=== PATIENT | female | born 1980 | race American Indian/Alaskan Native ===

== ENCOUNTER 2018-03-09 11:23 | Day surgery (SDC) | payer OTHER ==
[2018-03-04 09:55] VITALS: BMI 38.4
[2018-03-09] MEDS ORDERED: Lactated Ringer's 1,000 ML IV ONE (13:15)
[2018-03-09] MEDS ORDERED: Iohexol 240 200 ML ONE (14:40)
[2018-03-09] MEDS ORDERED: Propofol 10 mg/ml Inj (20 ML) ONE (14:42)
[2018-03-09] MEDS ORDERED: Midazolam 2 MG/2 ML VIAL ONE (14:42)
[2018-03-09] MEDS: Ciprofloxacin 400mg/200ml D5W 400 MG/200 ML BAG IVPB ONE ×2 (14:44→14:50)
[2018-03-09] MEDS ORDERED: HYDROmorphone 0.5 mg/0.5 ml ISec IVP PRN (15:29)
[2018-03-09 16:48] VITALS: BP 121/80; PULSE 66; RESP 18; TEMP 97.8; O2SAT 97
--- NOTE | 2018-03-09 17:45 | RAD ---
PROCEDURE: Intraoperative Fluoroscopy. HISTORY: NEUROGENIC BLADDER UTI FINDINGS: Fluoroscopic assistance was provided for cystogram. Please refer to the operative report from FLAVIO Kumari DR, MD. Total fluoroscopic time (continuous mode) utilized during the procedure 2.2 (seconds). Dosimetry: 2.44 mGy per meter squared.
--- NOTE | 2018-03-10 10:05 | RAD ---
HISTORY: NEUROGENIC BLADDER ,UTI COMPARISON: No prior. FINDINGS: BOWEL: Prominent matter retained colonic stool. No obstruction. No free air. BONES: Normal. OTHER FINDINGS: None. IMPRESSION: Prominent amount of retained colonic stool.
--- NOTE | 2018-03-31 18:42 | OP ---
PROCEDURE DATE: 03/09/2018 UROLOGY OPERATIVE NOTE PREOPERATIVE DIAGNOSES: Voiding dysfunction, incontinence, retention, neurogenic bladder. POSTOPERATIVE DIAGNOSES: Voiding dysfunction, incontinence, retention, neurogenic bladder. PROCEDURE: Cystogram and insertion of Harris catheter. COMPLICATIONS: There were no complications. INDICATIONS: See history and physical for further details. A very pleasant lady. "I am here really to insert a cystostomy tube." For various reasons, including body habitus, the patient with destroyed drainage permanently. I am not to use a Harris catheter which she does, insert a Harris catheter, she is having some difficulty with this. We discussed various options with the patient and after discussing various options, she is now here for the above procedure. HOWEVER, THERE IS A NOTED ALLERGY TO LATEX. , so we decided after discussing various options to do everything latex-free and not insert a cystostomy tube at this time. There is no latex-free cystostomy tube available at this clinic. PROCEDURES DONE: Cystogram and insertion of Harris catheter. The films were submitted to the radiologist. There are no complications. The catheter inserts well. There is no pelvic or rectal abnormalities. DESCRIPTION OF PROCEDURE: After obtaining informed consent, the patient was placed on the table. Routine monitors were placed. Time-out was called to confirm the patient positioning. Sedation was given. We have discussed various options with the patient to begin with about management including urodynamic studies including seeing a new urologist. The patient was placed on the table. Routine monitors were placed. Time out was called. I have explained to the patient we needed further diagnostic studies and evaluation. So a Harris catheter was inserted via urethra. We used a Silastic catheter and performed a cystogram. No reflux is appreciated. There is no diverticulum appreciated. The patient's bladder then should be amenable to an insertion of a cystostomy tube. At this point, I left a Harris catheter in place. See the addendum at the end of this note. There are no appreciable abnormalities. Harris was left in for straight drainage. The patient tolerated it well without complications. ADDENDUM: At the end of the procedure, I discussed with the patient about her allergy. She is very clear that, "she has a latex allergy," and she is very clear that she uses regular latex catheters at home. I discussed this at length with the patient. In fact, she then requested if we could further manage these issues. So we discussed at length that we will do a cystostomy with a regular Harris. We will make those arrangements. We are going to first see if we are able to obtain a small-sized Silastic catheter. So, at this point make an addendum to this note. but for now the patient is left with a Harris catheter. After discussing further options, the patient said she would rather not have any Harris for now. She wants to continue to catheterize herself as needed. So further plan is for the Harris catheter to be removed, and the patient will be brought back here. Allen Person MD
--- NOTE | 2018-04-01 04:56 | HP ---
HISTORY OF PRESENT ILLNESS: She is being admitted to the hospital for insertion of a cystostomy tube. A very pleasant lady who has multiple medical issues. See chart notes for further details, who is here today. She wants a cystostomy tube eventually. I explained to her, we are going to insert a small one, and actually large one, she is doing this for urinary incontinence. She is doing this for multiple reasons, including voiding dysfunction, and she intermittently catheterize herself and having difficulty with this. Secondary to her body habitus, she had difficulty with this. We did discuss various options and she is being brought in. See the addendum at the end of the note. PAST MEDICAL AND SURGICAL HISTORY: As listed and has multiple medical issues and problems on a social note. REVIEW OF SYSTEMS: No weight loss or chest pain. MEDICATIONS: See the chart. ALLERGIES: LATEX ALLERGY, SEE BELOW. PHYSICAL EXAMINATION: GENERAL: A well-developed, well-nourished female. Body habitus is noted. LUNGS: Clear. HEART: Normal S1, S2. ABDOMEN: Overall soft. No hernias appreciated. PELVIC EXAM: Deferred for now. As mentioned, there are no pelvic or rectal masses. DIAGNOSES: Voiding dysfunction, urinary incontinence. I discussed with the patient further diagnostic studies including urodynamics. I discussed with the patient seeing a new urologist. I discussed various options with the patient, but for social reasons and for other limit reasons, after discussing all the options, she decided the option of place a cystostomy tube. I explained to the patient that it can also be reversed. So the plan for today is as follows: A cystoscopy, a cystogram, and insertion of a cystostomy tube. The patient was looking for a large-caliber cath, 12-Bhutanese and worked our way up and performed dilation 14, 16, 18, etc. I have also explained open surgery and open cystostomy tubes, but I would not recommend that in this case. So the plan for today is as follows: 1. Antibiotics. 2. Cystoscopy. 3. Insertion of cystostomy tube. ADDENDUM: See the operative report. We ended up only doing a cystoscopy and a cystogram and Harris, but we did not end up doing a cystostomy tube. See the operative note, but there was a question about the allergy to the latex and the availability for a latex-free catheter insertion. So, we ended up only doing the cystoscopy and cystogram and leaving a Harris, but no apparent cystotomy. This will wait for a later date. Allen Person MD
== END 2018-03-09 17:35 | disposition home or self-care (01) ==
LOC: C.SDS 11:23
PROVIDERS: ATTEND Urology
DX: N31.9 Neuromuscular dysfunction of bladder, unspecified (principal); N39.0 Urinary tract infection, site not specified
CPT/HCPCS: 51702; 74018; 82948; J0744; J1580; J7120

== ENCOUNTER 2018-03-11 11:58 | Inpatient (IN) | payer OTHER ==
[2018-03-04 09:55] VITALS: BMI 38.4
[2018-03-11 12:52] LABS: BLOOD UREA NITROGEN 9 mg/dL (7-17); CALCIUM 8.9 mg/dl (8.6-10.4); GFR AFRICAN-AMERICAN > 60; GFR NON-AFRICAN AMERICAN > 60
[2018-03-11] MEDS: HYDROmorphone 0.5 mg/0.5 ml ISec IVP PRN ×3 (15:55→19:13)
[2018-03-11] MEDS ORDERED: Gentamicin 80 mg in 0.9% NS 80 MG/100 ML BAG IVPB ONE (16:55)
[2018-03-11] MEDS ORDERED: Propofol 10 mg/ml Inj (20 ML) ONE (17:05)
[2018-03-11] MEDS ORDERED: Midazolam 2 MG/2 ML VIAL ONE (17:05)
[2018-03-11] MEDS ORDERED: Iohexol 240 200 ML ONE (17:23)
[2018-03-11] MEDS ORDERED: Lidocaine Hydrochloride 5 ML INJ ONE (17:23)
[2018-03-11] MEDS ORDERED: PREDNISOLONE PO SCH (19:00)
[2018-03-11] MEDS ORDERED: PEG OU SCH (19:00)
[2018-03-11] MEDS ORDERED: PROPYLENE GLYCOL OU SCH (19:00)
[2018-03-11] MEDS ORDERED: DiphenhydrAMINE 50 mg/ml Inj IVP STA (19:59)
[2018-03-11] MEDS ORDERED: FLUTICASO IH SCH (20:00)
[2018-03-11] MEDS ORDERED: Albuterol 0.083% Inhal Sol (2.5 mg/3 mL) UD INH PRN (20:00)
[2018-03-11] MEDS ORDERED: SALMETEROL XINAFOATE IH SCH (20:00)
[2018-03-11] MEDS: Oxycodone/Acetaminophen 5/325 mg Tab PO PRN (20:30)
[2018-03-12] MEDS: Lactated Ringer's 1,000 ML IV SCH ×2 (00:14→13:41)
[2018-03-12] MEDS: Albuterol 0.083% Inhal Sol (2.5 mg/3 mL) UD INH PRN ×2 (00:36→19:25)
[2018-03-12] MEDS ORDERED: Calamine-Zinc Oxide Lotion (120 ml) TOP PRN (03:13)
[2018-03-12] MEDS: Oxycodone/Acetaminophen 5/325 mg Tab PO PRN ×3 (03:27→18:34)
--- NOTE | 2018-03-12 08:56 | RAD ---
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 Base demonstrates no masses or abnormal calcifications there is mild retained feces. There is no evidence of bowel obstruction. FINDINGS: BOWEL: Normal. No obstruction. No free air. BONES: Normal. OTHER FINDINGS: None. IMPRESSION: No active disease.
[2018-03-12] MEDS: Pantoprazole 40 mg EC Tab PO SCH (09:56)
--- NOTE | 2018-03-12 10:43 | RAD ---
PROCEDURE: Intraoperative Fluoroscopy. HISTORY: Incontinence FINDINGS: Fluoroscopic assistance was provided. Please refer to the operative report from FLAVIO Kumari, , MD ANY[facility].
--- NOTE | 2018-03-12 17:42 | PCM.URO ---
Urology Progress Note - General General: No Complaints, Tolerating Diet - Subjective Abdominal Pain: No Flank Pain: No Voiding Well: No Hematuria: No Dsypnea: No Chest Pain: No Fever & Chills: No - Objective Lab Results Last 24 Hours: Laboratory Results - last 24 hr 03/12/18 03/12/18 03/12/18 05:54 10:55 16:48 POC Glucose (mg/dL) 123 H 89 106 Intake & Output: Intake & Output 03/11/18 03/12/18 03/12/18 18:59 06:59 18:59 Intake Total 950 Output Total 975 950 Balance 950 -975 -950 Weight 238 lb Intake: IV 950 Output: Urine 975 950 Suprapubic 450 800 Urethral (Puckett) 50 150 Other: Voiding Method Incontinent Indwelling Catheter Vital Signs: Vital Signs - 24 hr 03/11/18 03/11/18 03/11/18 17:55 19:10 19:30 Temperature Pulse Rate 94 H 98 H 96 H Respiratory 12 14 12 Rate Blood Pressure 140/76 126/72 124/74 O2 Sat by Pulse 100 100 100 Oximetry 03/11/18 03/11/18 03/11/18 19:45 20:00 20:30 Temperature Pulse Rate 98 H 92 H 92 H Respiratory 14 17 17 Rate Blood Pressure 118/72 124/76 124/76 O2 Sat by Pulse 100 100 100 Oximetry 03/11/18 03/11/18 03/11/18 21:00 21:35 23:09 Temperature 97.8 F 98.1 F 97.7 F Pulse Rate 95 H 94 H 83 Respiratory 15 18 20 Rate Blood Pressure 113/79 119/78 106/67 O2 Sat by Pulse 99 98 100 Oximetry 03/12/18 03/12/18 03/12/18 00:37 07:50 16:00 Temperature 97.7 F 98.9 F Pulse Rate 94 H 79 88 Respiratory 20 18 Rate Blood Pressure 126/80 107/67 O2 Sat by Pulse 100 100 Oximetry - Physical Exam Abdominal Exam: Soft, Non-Tender, Non-Distended Dressing: Dry, Intact Back: No CVA Tenderness Urinary Catheter Draining Well: Yes Urine Color: Clear, Yellow (urethral puckett and cystostomy tubes draining well) - Plan Catheter Care: Yes Intake & Output: Yes Additional Information: Imp: stable p cystostomy tube insertion - Date & Time of Note Date: 03/12/18 Time: 12:40
[2018-03-13 00:57] VITALS: RESP 20
[2018-03-13] MEDS: Oxycodone/Acetaminophen 5/325 mg Tab PO PRN ×3 (01:51→21:01)
[2018-03-13] MEDS: Lactated Ringer's 1,000 ML IV SCH ×5 (01:52→21:06)
[2018-03-13] MEDS ORDERED: Pneumococcal 23-Valent Vaccine IM ONE (10:00)
[2018-03-13] MEDS: Pantoprazole 40 mg EC Tab PO SCH (10:42)
[2018-03-13] MEDS: Albuterol 0.083% Inhal Sol (2.5 mg/3 mL) UD INH PRN (19:47)
[2018-03-14] MEDS: Lactated Ringer's 1,000 ML IV SCH (06:04)
[2018-03-14 08:58] VITALS: BP 122/73; PULSE 104; TEMP 98.6; O2SAT 95
--- NOTE | 2018-03-31 21:34 | HP ---
REASON FOR ADMISSION: Treatment of voiding dysfunction, urinary incontinence, and for insertion of a cystostomy tube. See previous notes from previous admission. The patient is here today for insertion of a cystostomy tube. See previous notes. No other major changes. The plan is for insertion of cystostomy tube. DIAGNOSIS: Voiding dysfunction. PAST MEDICAL HISTORY AND PAST SURGICAL HISTORY: Otherwise unchanged. See recent admission notes for further details. Multiple medical issues. REVIEW OF SYSTEMS: As listed above. MEDICATIONS: See chart. ALLERGIES: THE PATIENT SAID SHE IS ALLERGIC TO LATEX. We asked the patient further questions. She uses a regular Harris catheter to insert into herself and specifically she says the yellow one, but the red one is what she uses, the clear one which are often the Silastic or the white are clear, but she says she specifically does not like using that, it is too hard for her. So, it sounds like she is not only not allergic, but she is actually specifically using Harris catheters that are latex. When asked further, she has no hives, no reaction, no signs, no shortness of breath, no wheezing, no signs of a systemic reaction. She said that the catheters bother her. See below the plan for today. PHYSICAL EXAMINATION: GENERAL: Well-nourished female, in no apparent distress, body habitus is noted. ABDOMEN: Relatively soft. DIAGNOSES: 1. Voiding dysfunction. 2. Urinary incontinence. 3. Neurogenic component to the bladder. PLAN: As follows. I discussed the options and my real recommendation is for the patient to see a neuro-urologist. However, after discussing options that are not seemingly happening, the patient is requesting and we discussed the options we are going to do a punch cystotomy with the eventual plan to get the catheter up to a larger size with self-dilation. Not a cystotomy. I discussed this with the patient at length and we got plan to proceed. Also, at this point, we are going to use a 12-Nauruan Harris catheter with a bore kit, which does have a latex catheter, but again after discussing with the patient, she does not really truly have an allergy. So, further plans will follow. The patient is being brought to the hospital now. The patient will be given antibiotic prophylaxis, we will plan for a punch cystostomy, and then further plans will follow. Allen Person MD [facility] # [id number]
--- NOTE | 2018-04-01 06:49 | OP ---
PROCEDURE DATE: 03/11/2018 UROLOGY OPERATIVE NOTE PREOPERATIVE DIAGNOSES: Voiding dysfunction, incontinence, neurogenic bladder. POSTOPERATIVE DIAGNOSES: Voiding dysfunction, incontinence, neurogenic bladder. PROCEDURE: Insertion of a punch cystostomy tube, a suprapubic replacement, and a cystogram. SURGEON: Allen Person MD COMPLICATIONS: There were no complications. ESTIMATED BLOOD LOSS: Less than 10 mL. At the termination of the procedure, the patient had both an indwelling Harris and a cystostomy tube. Both in their location. INDICATIONS: See history and physical for further details. A pleasant young lady with multiple medical issues, here for the above procedure. Blood loss is less than 10 mL and there were no complications. I discussed with the patient indications. I discussed risks regarding her allergies, also discussed with the neuro urologist. After discussing various options with the patient, she is now ready for the above-listed procedure. DESCRIPTION OF PROCEDURE: After obtaining informed consent, the patient was placed on the table. Routine monitoring device was placed. Time-out was called to confirm the patient positioning. It was done in supine position. We inflated the bladder from below. We inserted the Harris catheter via urethra. We overinflated the bladder with almost about a liter. The patient was given anesthesia. The positioning, time-out, whole body prep . We had Harris catheter inserted via the urethra and we overinflated the bladder. Now, we above the pubic bone. We used a finder needle. Given the patient's body habitus, we needed a little bit of a longer finder needle. We used the spinal needle and found the fluid easily. . We now measured out the length of the needle. We selected a suprapubic catheter, we used the Nykaa System. Once we did this and we 2-0 Vicryl . We inserted the cystotomy tube in a good location. I removed the needle. We the balloon. We removed the Stylet. We confirmed the positioning with the cystogram. The patient tolerated the procedure well without complication. We secured it in position with a suture material. Allen Person MD [facility] # [id number]
--- NOTE | 2018-04-01 06:50 | DS ---
See the history and physical. See the operative note. A very pleasant lady but with some limits. the patient had no complications. The patient was admitted to the hospital for further observation and then discharged to home. The vital signs remained stable throughout. Heart rate, blood pressure, urine results reported. The patient was concerned to take care of the catheters. So, she was admitted for observation, and then subsequently when she was cleared, we were able to discharge her home. At the time of discharge, she was stable. She has a suprapubic catheter in place. She was given clear instructions to come back to the office for a routine followup and then we are going to dilate the cystotomy tube site, and from 14, 15, 18, etc. The patient was also given clear instructions on catheter care. Further plans will follow. Allen Person MD
== END 2018-03-14 11:28 | disposition home or self-care (01) | DRG 700 ==
LOC: C.SDS 11:58 → C.6T 18:52
PROVIDERS: ADMIT Urology; ATTEND Urology
PROC: BT10YZZ Fluoroscopy of Bladder using Other Contrast (ICD-10-PCS; 2018-03-11)
PROC: 0T2BX0Z Change Drainage Device in Bladder, External Approach (ICD-10-PCS; principal; 2018-03-11 15:00)
DX: N31.9 Neuromuscular dysfunction of bladder, unspecified (principal); N39.498 Other specified urinary incontinence; J44.9 Chronic obstructive pulmonary disease, unspecified; E11.9 Type 2 diabetes mellitus without complications; I10 Essential (primary) hypertension; E78.5 Hyperlipidemia, unspecified; Z99.81 Dependence on supplemental oxygen; Z88.0 Allergy status to penicillin

== ENCOUNTER 2018-04-29 09:47 | Day surgery (SDC) | payer OTHER ==
[2018-03-04 09:55] VITALS: BMI 38.4
[2018-04-29 10:43] VITALS: O2SAT 100
[2018-04-29 11:29] LABS: BLOOD UREA NITROGEN 11 mg/dL (7-17); CALCIUM 9.3 mg/dl (8.6-10.4); GFR AFRICAN-AMERICAN > 60; GFR NON-AFRICAN AMERICAN > 60
[2018-04-29] MEDS ORDERED: Midazolam 2 MG/2 ML VIAL ONE (12:09)
[2018-04-29] MEDS ORDERED: Lidocaine Hydrochloride 5 ML INJ ONE (12:10)
[2018-04-29] MEDS ORDERED: Propofol 10 mg/ml Inj (20 ML) ONE (12:10)
[2018-04-29] MEDS ORDERED: Gentamicin 80 mg in 0.9% NS 80 MG/100 ML BAG IVPB ONE (12:33)
[2018-04-29] MEDS ORDERED: Iohexol 240 200 ML ONE (12:36)
[2018-04-29] MEDS ORDERED: Lactated Ringer's 1,000 ML IV ONE (13:02)
[2018-04-29] MEDS ORDERED: HYDROmorphone 0.5 mg/0.5 ml ISec IVP PRN (13:16)
[2018-04-29] MEDS ORDERED: Lactated Ringer's 1,000 ML IV SCH (13:30)
[2018-04-29 14:09] VITALS: BP 120/70; PULSE 92; RESP 18; TEMP 97.7
--- NOTE | 2018-04-29 19:22 | RAD ---
HISTORY: RETENTION COMPARISON: Abdomen KUB 03/11/2018. FINDINGS: BOWEL: Nonobstructive bowel gas pattern appreciated retained material scattered throughout the right greater than left hemicolon including the transverse segment. Phlebolith like calcifications in the inferior right pelvis and possibly the left as well. A rounded radiodensity is appreciated urinary bladder region. The 2nd image has been submitted demonstrating filling of the urinary bladder with final images demonstrating a catheter draining urinary bladder. Please see clinical nodes from Dr. Byrne. BONES: Normal. OTHER FINDINGS: None. IMPRESSION: Cystogram for evaluation of urinary retention. Please see clinical most from Dr. Kimble for further details.
--- NOTE | 2018-05-10 07:03 | HP ---
UROLOGY HISTORY AND PHYSICAL REASON FOR ADMISSION: Change of Harris catheter. The patient is a very pleasant lady who is here today. We are going to dilate her cystostomy tube tract and go from 12 Samoan up to 16 or 18. We are also going to do a cystogram. Ms. Price is a pleasant lady who has voiding dysfunction. She has incontinence, voiding dysfunction, multiple medical issues as well. She wears oxygen. See the chart for further details, see previous notes, but today we are planning to dilate the tract. She is looking for a larger catheter. She asked us to get up to 22 Samoan. Of note, the patient reported ALLERGY TO LASIX. Today, we are going to use a silicon catheter, latex free catheter, and see how she does with it. She reports previously she has had Harris catheter. Currently, the catheter she has in is a regular yellow catheter 12 Samoan. I discussed this with the patient and asked for exact details of her allergy. She does not describe it well, and she is not exactly sure what she meant by allergy. But today, we are going to see if we can try to put silicon or latex free catheter. PAST MEDICAL AND SURGICAL HISTORY: Listed on the chart. Otherwise unremarkable. No changes since the last admission. See previous notes. REVIEW OF SYSTEMS: Listed above. No weight loss, chest pain, shortness of breath, or the like. SOCIAL HISTORY: Travels here by transportation. We made arrangements for today. PHYSICAL EXAMINATION: GENERAL: A well-nourished female, in no apparent distress. VITAL SIGNS: Within normal limit. Included in the chart. LUNGS: Clear. HEART: Normal S1, S2. ABDOMEN: Soft. The cystostomy tube is in good location. Draining well. Pelvic exam is deferred at this point, but as previously mentioned, no pelvic or rectal masses are noted. The diagnoses is voiding dysfunction, urinary incontinence. Plan as follows: I discussed with her my real recommendation is that she see somebody who does more neurourology than I do. She reports that for various reasons including insurance, including travel, she would rather stick with me for plans. I explained to her about doing urodynamic studies. I explained to her video urodynamics which I do not have access to. But that would be my real recommendation. From Urology standpoint, we are going to do the following: We are going to maintain cystostomy tube. She is much happier with this catheter. She wants it to be bigger but she is happy with the catheter rather than voiding via the urethra instead having a Harris catheter. We are going to provide antibiotic prophylaxis. We are going to dilate the tract. I am going to try to if possible. Further plans as follows: 1. the antibiotics. 2. Insertion of 16 or 18 Samoan, Harris catheter and cystogram, and then further plans following. Risk and benefits were discussed with the patient at length. Allen Person MD
--- NOTE | 2018-05-10 07:03 | OP ---
PROCEDURE DATE: 04/29/2018 PREOPERATIVE DIAGNOSES: Voiding dysfunction, urine incontinence. POSTOPERATIVE DIAGNOSES: Voiding dysfunction, urine incontinence. PROCEDURE: A dilation of the tract, insertion from a 12-[place]ay[place] Islander to a 16-[place]ay[place] Islander. There were no complications in the cystogram to confirm positioning. BLOOD LOSS: Less than 10 mL. UROLOGY OPERATIVE FINDINGS: We were able to get easily from 12 to 16, it was not comfortable, we tried with an 18, but it was not inserting easily. So we just left it at 16 and we confirmed our positioning. There were no complications. INDICATIONS: See history and physical for further details. But basically, the patient here for the above procedure. Just for a little issue is with the consent and the latex allergy. The team at the operating room because it was listed as a latex allergy, I am going to try to use a latex-free catheter. The patient said that she just came with an indwelling Harris catheter that I inserted previously. See my previous note regarding her allergies, but we are going to try use a latex-free at this time. In this hospital, we have 16 and 18-[place]ay[place] Islander. And so we are going to try those catheters first and see how the patient does clinically. She reports that when she had it via the urethra, sometimes they caused discomfort, but I told her at least to give it a shot from the suprapubic region it may be different. DESCRIPTION OF PROCEDURE: After obtaining informed consent, the patient was placed on the table. Routine monitor was placed. Time-out was called to confirm the patient and positioning. We removed the old catheter. We attempted a 14, goes in easily. We then went up to 16 that went in easily, no problem. We were not able to go up to 18. So, at this point, I went back to the 16, I irrigated it, irrigates well. We did a cystogram. We confirmed our positioning. The patient tolerated the procedure without complication. ADDENDUM: We are going to leave this Harris catheter and then eventually work a way, the patient is requesting a 22. I discussed with the patient the benefits of such a large catheter. I also discussed the risks associated with it. But we will get up to 22. Again, I have also discussed the patient's urodynamics let her more comfortable with the neurourology issues. So, further plans will follow. Allen Person MD
== END 2018-04-29 14:10 | disposition home or self-care (01) ==
LOC: C.SDS 09:47
PROVIDERS: ATTEND Urology
DX: Z46.6 Encounter for fitting and adjustment of urinary device (principal); R33.9 Retention of urine, unspecified; R32 Unspecified urinary incontinence
CPT/HCPCS: 36415; 51600; 51705; 74018; 74430; 80048; 82948; C2627; J1580; J7120